=== PATIENT | female | born 1995 | race Caucasian/White ===

== ENCOUNTER 2022-05-21 08:00 | Outpatient (CLI) | payer MEDICAID | END 2022-05-21 23:59 | disposition home or self-care (01) | LOC: LAB.R 08:00 | PROVIDERS: ATTEND Nurse Practitioner Obstetrics & Gynecology | DX: R03.0 Elevated blood-pressure reading, without diagnosis of hypertension (principal) | CPT/HCPCS: 81599; 84156 ==

== ENCOUNTER 2022-05-27 09:59 | Outpatient (CLI) | payer MEDICAID ==
[2022-05-27] MEDS ORDERED: LACTATED RINGERS 1,000 ML IV ONE (10:08)
[2022-05-27 10:34] VITALS: BP 136/69
[2022-05-27] MEDS ORDERED: FERRIC GLUCONATE 125 MG in SODIUM CHLORIDE 0.9% 100ML 100 ML IV ONE (11:00)
== END 2022-05-27 12:30 | disposition home or self-care (01) ==
LOC: WFO 09:59 → FBP 10:03 → WFO 12:30
PROVIDERS: ATTEND Nurse Practitioner Obstetrics & Gynecology
DX: O99.013 Anemia complicating pregnancy, third trimester (principal); Z3A.00 Weeks of gestation of pregnancy not specified
CPT/HCPCS: 96365; J2916

== ENCOUNTER 2022-06-24 16:06 | Outpatient (CLI) | payer MEDICAID ==
--- NOTE | 2022-06-24 18:28 | Ultrasound Report ---
PROCEDURE: OB F/U or Repeat INDICATIONS: UTERINE SIZE DATE DISCREPENCY OUTSIDE/PRIOR DATING DATA: Last menstrual period (LMP): 10/25/2021 LMP-based estimated date of delivery (TON): 08/01/2022. First dating scan (date and location): 06/24/2022. Estimated date of delivery (TON) from first dating scan: 07/08/2022. TECHNIQUE: Real-time scanning was performed of the fetus, with image documentation and biometric measurements. COMPARISON: None. FINDINGS: General: A single living intrauterine gestation is present. Presentation: Vertex Placenta: Placental position is posterior, without previa. Amniotic fluid index: 23 cm, upper limits of normal for gestational age. heart rate: 164 beats per minute. Maternal cervical canal: 4.3 cm long; normal length is 2.5 cm or more. biometrics: Biparietal diameter: 9.3 cm 36 weeks 6 days Head circumference: 35.1 cm 40 weeks 5 days Abdominal circumference: 33.9 cm 37 weeks 5 days Femur length: 5.9 cm 35 weeks 2 days Estimated gestational age from LMP: 34 weeks 4 days Composite gestational age from present scan: 38 weeks 0 days Estimated weight and percentile: 3233 g 99th percentile Measurement variability in biometric dating: +/- 10 days from 12-20 weeks gestation, +/- 2 weeks from 20-30 weeks gestation, +/- 3 weeks at 30 weeks gestation or more. Other: Not applicable. IMPRESSION: Single live intrauterine with ultrasound gestational age today of 38 weeks 4 days. This is compared to 34 weeks 4 days based on clinical dates. Please correlate with clinical data given wide r mahamed of dates. In addition, weight is at the 99th percentile consistent with macrosomia. Reviewed by: Monique Stallings MD on 06/24/2022 6:26 PM PDT Approved by: Monique Stallings MD on 06/24/2022 6:26 PM PDT Station ID: [id number]
== END 2022-06-24 16:07 | disposition home or self-care (01) ==
LOC: DI 16:06
PROVIDERS: ATTEND Nurse Practitioner Obstetrics & Gynecology
DX: O26.843 Uterine size-date discrepancy, third trimester (principal); O99.213 Obesity complicating pregnancy, third trimester; Z3A.38 38 weeks gestation of pregnancy

== ENCOUNTER 2022-06-28 20:44 | Outpatient (CLI) | payer MEDICAID ==
[2022-06-28 21:16] LABS: BASOPHILS % (AUTO) 0.3 %; EOSINOPHILS # (AUTO) 0.1 10^3/uL (0.0-0.7); HCT - HEMATOCRIT 32.4 % (37.0-47.0); HGB - HEMOGLOBIN 10.2 g/dL (12.0-16.0); LYMPHOCYTES % (AUTO) 23.2 %; MEAN CORPUSCULAR HEMOGLOBIN 24.9 pg (27.0-31.0); MEAN CORPUSCULAR HGB CONC 31.5 g/dL (32.0-36.0); MEAN CORPUSCULAR VOLUME 79.2 fL (81.0-99.0); MEAN PLATELET VOLUME 10.9 fL (7.9-10.8); MONOCYTES # (AUTO) 0.9 10^3/uL (0.0-1.0); MONOCYTES % (AUTO) 7.2 %; NEUTROPHILS # (AUTO) 8.6 10^3/uL (1.5-6.6); NEUTROPHILS % (AUTO) 67.7 %; PLT - PLATELET COUNT 303 10^3/uL (130-450); RED BLOOD COUNT 4.09 10^6/uL (4.20-5.40); RED CELL DISTRIBUTION WIDTH 13.9 % (12.0-15.0); WHITE BLOOD COUNT 12.8 x10^3/uL (4.8-10.8)
[2022-06-28 21:28] LABS: CREATININE,URINE 56.4 mg/dL; PROTEIN/CREATININE RATIO,URINE 0.1 (<=0.2)
[2022-06-28 21:29] LABS: ALBUMIN 2.8 g/dL (3.2-5.5); ALBUMIN/GLOBULIN RATIO 0.6 (1.0-2.2); BILIRUBIN,TOTAL 0.4 mg/dL (0.2-1.0); CALCIUM 8.9 mg/dL (8.5-10.3); CREATININE 0.5 mg/dL (0.4-1.0); POTASSIUM 3.8 mmol/L (3.5-5.0); TOTAL PROTEIN 7.2 g/dL (6.7-8.2)
[2022-06-28 22:36] VITALS: BP 116/81
--- NOTE | 2022-06-29 09:42 | PROVIDER PROGRESS NOTE ---
- HPI Chief Complaint: Hypertension/PIH Current : Current EDU 08/01/22 Gestation 35 Weeks and 1 Days 4 Para 3 Vital Signs Temperature 37.0 C 06/28/22 21:04 Heart Rate 92 06/28/22 21:04 Respiratory Rate 22 06/28/22 21:04 Blood Pressure 135/93 H 06/28/22 21:04 Temperature 37.0 C 06/28/22 21:40 Heart Rate 91 06/28/22 21:40 Respiratory Rate 20 06/28/22 21:40 Blood Pressure 116/81 H 06/28/22 21:40 O2 Saturation If not protocol: Oxygen Flow, liters/minute - Procedures OB Procedure Performed: NST Diagnosis/Indication for NST: Gestational Hypertension NST Procedure: NST Procedure Start Date 06/28/22 Start Time 20:54 Stop Time 21:14 Vibroacoustic Stimulation Used No Patient States Movement Yes - Plan Plan: HPI: Deirdre presents today with her to [facility] with concerns for elevated blood pressure. She was diagnosed with gestational hypertension a couple of weeks ago. She has been checking her blood pressures at home and they have remained in the mildly elevated range with the diastolic pressures ranging in the high 80s to low 90s. Her systolics have been 120s-130s. What concerned her was the development of visual disturbances in her left eye that she notes as a crecent shape that progressively worsened and then completely blurred the vision in her left eye. She states her blood pressure when it was occurring was 138/94. She denies headache. SHe states she has had some upper abdominal pain under her ribs bilaterally and denies any increased pain in her right upper quadrant. She denies edema. She reports her visiual disturbances lasted x 1.5 hours and have now completely resolved. She has not history of gestational hypertension or preeclampsia in her previous pregnancies. O: BP on arrival 130/93 with repeat 120s/80s Heart RRR w/o M/G/R, lungs CTAB, abdomen gravid, soft, nontender with no RUQ tenderness noted upon palpation. DTRs 1+, no clonus. Bilateral LE's no edema. NST reactive: FHR baseline 130s, moderate variability, + accels, no decels No contractions appreciated via tocometry Pr/Cr ratio - 0.1 PIH labs WNL A: 26yo @ 35.1wks gestation Gestational hypertension Obesity P: IOL scheduled for 37.0wks gestation Closely reviewed PIH warning s/sx with patient and when to present for urgent/emergent evaluation. Continue twice weekly NSTs with once weekly AFIs. Pt verbalized understanding and agrees to above plan. She denies further questions or concerns at this time. FINAL DIAGNOSIS: Gestational hypertension
== END 2022-06-28 21:56 | disposition home or self-care (01) ==
LOC: WFO 20:44 → OBS 20:47 → FBP 20:55 → WFO 21:56
PROVIDERS: ATTEND Nurse Practitioner Obstetrics & Gynecology
DX: O13.3 Gestational [pregnancy-induced] hypertension without significant proteinuria, third trimester (principal); O99.891 Other specified diseases and conditions complicating pregnancy; H53.9 Unspecified visual disturbance; O99.213 Obesity complicating pregnancy, third trimester; Z3A.35 35 weeks gestation of pregnancy
CPT/HCPCS: 36415; 59025; 80053; 82570; 84156; 85025; 99212; 99215

== ENCOUNTER 2022-07-11 12:59 | Outpatient (CLI) | payer MEDICAID ==
[2022-07-11 13:32] VITALS: BP 104/58
[2022-07-11 13:58] LABS: BASOPHILS # (AUTO) 0.1 10^3/uL (0.0-0.1); BASOPHILS % (AUTO) 0.4 %; EOSINOPHILS # (AUTO) 0.1 10^3/uL (0.0-0.7); EOSINOPHILS % (AUTO) 0.8 %; HCT - HEMATOCRIT 35.7 % (37.0-47.0); HGB - HEMOGLOBIN 11.1 g/dL (12.0-16.0); LYMPHOCYTES # (AUTO) 2.8 10^3/uL (1.5-3.5); LYMPHOCYTES % (AUTO) 22.5 %; MEAN CORPUSCULAR HEMOGLOBIN 24.8 pg (27.0-31.0); MEAN CORPUSCULAR HGB CONC 31.1 g/dL (32.0-36.0); MEAN CORPUSCULAR VOLUME 79.7 fL (81.0-99.0); MEAN PLATELET VOLUME 11.3 fL (7.9-10.8); MONOCYTES # (AUTO) 0.8 10^3/uL (0.0-1.0); MONOCYTES % (AUTO) 6.6 %; NEUTROPHILS # (AUTO) 8.7 10^3/uL (1.5-6.6); NEUTROPHILS % (AUTO) 69.2 %; PLT - PLATELET COUNT 302 10^3/uL (130-450); RED BLOOD COUNT 4.48 10^6/uL (4.20-5.40); WHITE BLOOD COUNT 12.6 x10^3/uL (4.8-10.8)
[2022-07-11 14:14] LABS: ALBUMIN/GLOBULIN RATIO 0.6 (1.0-2.2); BILIRUBIN,TOTAL 0.3 mg/dL (0.2-1.0); CALCIUM 9.3 mg/dL (8.5-10.3); CREATININE 0.6 mg/dL (0.4-1.0); POTASSIUM 3.8 mmol/L (3.5-5.0); TOTAL PROTEIN 7.9 g/dL (6.7-8.2)
[2022-07-11 14:50] LABS: TOTAL PROTEIN,URINE TIMED < 6 mg/dL
[2022-07-11 14:52] LABS: CREATININE,URINE 46.1 mg/dL
--- NOTE | 2022-07-11 16:23 | PROCEDURE REPORT ---
- HPI Diagnosis/Indication for NST: Gestational Hypertension Current EDU 08/01/22 Gestation 37 Weeks and 0 Days 4 Para 3 Vital Signs Temperature 37.0 C 07/11/22 13:12 Temperature 37.0 C 07/11/22 13:25 Heart Rate 88 07/11/22 13:25 Respiratory Rate 18 07/11/22 13:25 Blood Pressure 104/58 L 07/11/22 13:25 O2 Saturation If not protocol: Oxygen Flow, liters/minute - NST Procedure NST Procedure Start Date 07/11/22 Start Time 13:06 Stop Time 13:38 Vibroacoustic Stimulation Used No Patient States Movement Yes - Results and Plan Findings/Impression: NST reactive. FHR baseline 140s, moderate variability, + accels, no decels Contractions palpate mild intermittently with soft resting tone. PIH labs - negative FINAL DIAGNOSIS: Gestational hypertension, 37.0wks gestation
== END 2022-07-11 14:15 | disposition home or self-care (01) ==
LOC: WFO 12:59 → FBP 13:01 → WFO 14:15
PROVIDERS: ATTEND Obstetrics & Gynecology
DX: O13.3 Gestational [pregnancy-induced] hypertension without significant proteinuria, third trimester (principal); Z3A.37 37 weeks gestation of pregnancy
CPT/HCPCS: 36415; 59025; 80053; 82570; 84156; 85025; 99212

== ENCOUNTER 2022-07-11 16:25 | Inpatient (IN) | payer MEDICAID ==
[2022-07-11] MEDS ORDERED: lidocaine 1% 20 ML MDV ID PRN (16:29)
[2022-07-11] MEDS ORDERED: miSOPROStoL 200 MCG TABLET BC PRN (16:29)
[2022-07-11] MEDS ORDERED: CARBOPROST TROMETHAMINE 250 MCG/ML AMP IM PRN (16:29)
[2022-07-11] MEDS ORDERED: METHYLERGONOVINE 0.2 MG/ML VIAL IM PRN (16:29)
[2022-07-11] MEDS ORDERED: SODIUM CHLORIDE FLUSH 0.9% 10 ML SYRINGE IVP PRN (16:29)
[2022-07-11] MEDS ORDERED: TRANEXAMIC ACID IN NACL 1,000 MG/100 ML BAG IV PRN (16:29)
[2022-07-11] MEDS ORDERED: OXYTOCIN/SODIUM CHLORIDE 500 ML IV PRN (16:29)
[2022-07-11] MEDS ORDERED: OXYTOCIN 10 UNIT/ML VIAL IM PRN (16:29)
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
[2022-07-11] MEDS: LACTATED RINGERS 1,000 ML IV SCH (17:00)
[2022-07-11] MEDS: SODIUM CHLORIDE FLUSH 0.9% 10 ML SYRINGE IVP SCH (17:00)
[2022-07-12] MEDS: SODIUM CHLORIDE FLUSH 0.9% 10 ML SYRINGE IVP SCH ×2 (01:00→13:42)
[2022-07-12] MEDS: LACTATED RINGERS 1,000 ML IV SCH ×2 (03:00→20:34)
--- NOTE | 2022-07-12 06:34 | PROVIDER PROGRESS NOTE ---
Labor Progress Note - Uterine Monitoring Uterine Monitoring Mode: positive: External toco Contraction Frequency (min/apart): occasional Contraction Intensity: positive: Mild Uterine Resting Tone: positive: Soft - Monitoring Monitor Mode: positive: External ultrasound Heart Rate Baseline: 130 Heart Rate Variability: positive: Moderate (6-25 bmp) Accelerations: positive: Present, 15x15 Decelerations: positive: None Strip Review: positive: Category I - Vaginal Exam Dilation (in cm): 2-3 Effacement (%): 50 Station: -3 Cervical Position: Posterior - Labor Progress Note Labor Progress Note/Additional Text: S: Deirdre states she was able to get some sleep last night. She felt cramping in her back pretty consistently after initial placement of the cervical ripening balloon but after a couple of hours it decreased and she only felt the cramping with baby's movements. She denies CLARK, visual disturbances, RUQ or epigastric pain. She has experienced some increased mucousy discharged that has a small amount of blood in it. She denies leakage of fluid and reports +FM. O: FHR baseline 130s, moderate variability, + accels, no decels Contractions palpate mild occasionally with soft resting tone SVE 2-3/50/-3, posterior. Vertex with intact membranes. A: 26yo @ 37.1wks gestation Gestational hypertension - normotensive since arrival FHR Category I GBS negative P: Baptiste cervical ripening balloon removed and pt tolerated well. Initiate misprostol 50mcg BC x once followed by initiation of pitocin for induction of labor 4 hours after administration of misoprostol. Continuous monitoring Encouraged ambulation and position changes. Nitrous oxide PRN. Jacuzzi PRN. Epidural per maternal request. Anticipate .
[2022-07-12] MEDS: miSOPROStoL 100 MCG TABLET BC SCH ×2 (08:46→13:41)
[2022-07-12] MEDS ORDERED: OXYTOCIN/SODIUM CHLORIDE 500 ML IV SCH (20:10)
--- NOTE | 2022-07-12 20:14 | PROVIDER PROGRESS NOTE ---
Labor Progress Note - Uterine Monitoring Uterine Monitoring Mode: positive: External toco Contraction Frequency (min/apart): 2-3 Contraction Intensity: positive: Mild Uterine Resting Tone: positive: Soft - Monitoring Monitor Mode: positive: External ultrasound Heart Rate Baseline: 150 Heart Rate Variability: positive: Moderate (6-25 bmp) Accelerations: positive: Present, 15x15 Decelerations: positive: None Strip Review: positive: Category I - Vaginal Exam Dilation (in cm): 3 Effacement (%): 50 Station: -3 Cervical Position: Posterior - Labor Progress Note Labor Progress Note/Additional Text: S: Pt has been feeling more consistent cramping following 2 doses of 50mcg BC misoprostol. She is currently sitting up in the bed. Her Maycol is supportive at the bedside. She has had some mucousy discharge. She denies headache, visual disturbances, RUQ or epigastric pain. O: FHR baseline 150, moderate variability, + accels, no decels Contractions palpate mild every 2-3 minutes with soft resting tone SVE 3/50/-3, posterior. Vertex. Intact membranes BP normotensive A: 26yo @ 37.1wks gestation Gestational hypertension FHR Category I GBS negative P: Initiate pitocin for induction of labor with titration per protocol. Continuous monitoring. Encouraged ambulation and position changes. Jacuzzi PRN. Nitrous oxide PRN. Epidural per maternal request. Anticipate .
[2022-07-13] MEDS: LACTATED RINGERS 1,000 ML IV SCH ×3 (04:05→13:20)
--- NOTE | 2022-07-13 07:06 | PROVIDER PROGRESS NOTE ---
Labor Progress Note - Uterine Monitoring Uterine Monitoring Mode: positive: External toco Contraction Frequency (min/apart): 2-3 Contraction Intensity: positive: Moderate Uterine Resting Tone: positive: Soft - Monitoring Monitor Mode: positive: External ultrasound Heart Rate Baseline: 130 Heart Rate Variability: positive: Moderate (6-25 bmp) Accelerations: positive: Present, 15x15 Decelerations: positive: None Strip Review: positive: Category I - Vaginal Exam Dilation (in cm): 4 Effacement (%): 50 Station: -2 Cervical Position: Midposition - Labor Progress Note Labor Progress Note/Additional Text: S: Pt feeling more uncomfortable with contractions. She requests an epidural for pain management at this trime prior to initiation of rupture of membranes since historically this has made her labor progress rather quickly. Her is supportive at the bedside. O: FHR baseline 130, moderate variability, + accels, no decels Contractions palpate moderate every 2-3 minutes with soft resting tone. SVE 3-4/50/-2, midposition. Soft, vertex. Pitocin @ 12mU/mL A: 26yo @ 37.2wks gestation Gestational hypertension Obesity Early labor FHR Category I P: Continue induction of labor with pitocin with titration per protocol. Continuous monitoring. Anesthesia notified that patient would like an epidural for pain management. AROM once comfortable with epidural. Anticipate .
[2022-07-13] MEDS ORDERED: ROPIVACAINE 0.2% 200 MG/100 ML BAG EP ONE (07:15)
[2022-07-13] MEDS ORDERED: NALBUPHINE 10 MG/ML AMP IVP PRN (08:13)
[2022-07-13] MEDS ORDERED: ROPIVACAINE 0.2% 200 MG/100 ML BAG EP PRN (08:13)
[2022-07-13] MEDS ORDERED: diphenhydrAMINE INJ 50 MG/ML VIAL IVP PRN (08:13)
[2022-07-13] MEDS ORDERED: ONDANSETRON 4 MG/2 ML VIAL IVP PRN (08:13)
--- NOTE | 2022-07-13 08:13 | ANESTHESIA ---
Pre-Anesthesia VS, & Labs - Diagnosis active labor - Procedure labor induction Vital Signs: Temp Pulse Resp BP Pulse Ox O2 Flow Rate 36.0 C L 92 20 120/79 98 07/12/22 06:45 07/12/22 06:45 07/12/22 06:45 07/12/22 06:45 07/11/22 19:32 Height: 5 ft 8 in Weight (kg): 136.985 kg Body Mass Index: 45.9 BMI Classification: Morbidly Obese - NPO Other - Is Patient ?: Yes - Lab Results Current Lab Results: Laboratory Tests 07/11/22 19:50: Blood Type Recheck O POSITIVE 07/11/22 18:30: Blood Type O POSITIVE, Antibody Screen NEGATIVE Home Medications and Allergies Active Medications Carboprost Tromethamine (Carboprost Tromethamine 250 Mcg/Ml Amp) 250 mcg IM Q15M PRN PRN Reason: Step 4: Hemorrhage protocol Stop: 07/16/22 16:30 Oxytocin/Sodium Chloride (Pitocin/Sodium Chloride) 500 mls @ 999 mls/hr IV PRN PRN; Protocol PRN Reason: POST- HEMORR PREVENTION Stop: 07/16/22 16:30 Tranexamic Acid (Tranexamic 1,000 Mg/100ml-Nacl) 1,000 mg in 100 mls @ 600 mls/hr IV .ONCE PRN PRN Reason: EBL >1200mL and within 3hr Stop: 07/16/22 16:30 Lactated Ringer's (Lr) 1,000 mls @ 100 mls/hr IV .Q10H OSMANY Last Admin: 07/13/22 04:05 Dose: 100 mls/hr Oxytocin/Sodium Chloride (Pitocin/Sodium Chloride) 500 mls @ 2 mls/hr IV TITR OSMANY; Protocol Last Titration: 07/13/22 06:21 Dose: 12 milliunit/min, 12 mls/hr Lidocaine HCl (Lidocaine 1% 20 Ml Mdv) 20 ml ID .ONCE PRN PRN Reason: PERINEAL REPAIR Stop: 07/16/22 16:30 Methylergonovine Maleate (Methylergonovine 0.2 Mg/Ml Vial) 0.2 mg IM .ONCE PRN PRN Reason: Step 2: Hemorrhage protocol Stop: 07/16/22 16:30 Misoprostol (Misoprostol 200 Mcg Tablet) 800 mcg BC .ONCE PRN PRN Reason: Step 3: Hemorrhage protocol Stop: 07/16/22 16:30 Misoprostol (Misoprostol 100 Mcg Tablet) 50 mcg BC Q4H [facility] Last Admin: 07/12/22 13:41 Dose: 50 mcg Oxytocin (Oxytocin 10 Unit/Ml Vial) 10 unit IM .ONCE PRN PRN Reason: Step one: If no IV access Stop: 07/16/22 16:30 Sodium Chloride (Sodium Chloride Flush 0.9% 10 Ml Syringe) 10 ml IVP 0100,0900,1700 [facility] Last Admin: 07/12/22 13:42 Dose: 10 ml Sodium Chloride (Sodium Chloride Flush 0.9% 10 Ml Syringe) 10 ml IVP PRN PRN PRN Reason: NEEDED PER PROVIDER ORDERS Allergies/Adverse Reactions: Allergies Allergy/AdvReac Type Severity Reaction Status Date / Time amoxicillin Allergy Hives Verified 05/27/22 10:35 Penicillins Allergy Hives Verified 05/27/22 10:35 Anes History & Medical History - Anesthetic History Anesthesia Complications: reports: No previous complications - Medical History Smoking Status: Never smoker - Obstetrical History : 4 Parity: 3 Events: reports: None Complications: reports: induced HTN Exam General: Alert, Oriented x3 Dental: WNL Mouth Opening: Greater than 4 Fingerbreadths Neck Mobility: Normal Mallampati classification: II Thyromental Distance: greater than 6 cm Respiratory: Lungs clear Plan Anesthesia Type: Epidural Consent for Procedure(s) Verified and Reviewed: Yes Code Status: Attempt Resuscitation ASA classification: 3-Severe systemic disease Is this case an emergency?: No
--- NOTE | 2022-07-13 11:44 | PROVIDER PROGRESS NOTE ---
Labor Progress Note - Uterine Monitoring Uterine Monitoring Mode: positive: External toco Contraction Frequency (min/apart): 2-4 Contraction Intensity: positive: Moderate Uterine Resting Tone: positive: Soft - Monitoring Monitor Mode: positive: External ultrasound Heart Rate Baseline: 150 Heart Rate Variability: positive: Moderate (6-25 bmp) Accelerations: positive: Present, 15x15 Decelerations: positive: None Strip Review: positive: Category I - Vaginal Exam Dilation (in cm): 5 Effacement (%): 50 Station: -1 Cervical Position: Midposition - Labor Progress Note Labor Progress Note/Additional Text: S: Pt comfortable with epidural. She states it took a little while for her right side to get complete coverage but is feeling well now and has been able to sleep intermittently. Her and mom are supportive at the bedside. She continues to deny headache, visual disturbances, RUQ or epigastric pain. O: FHR baseline 150s, moderate variability, + accels, no decels Contractions palpate moderate every 2-4 minutes with soft resting tone. SVE 5/50/-1, midposition, vertex. AROM occurred and was noted to be a large amount of clear amniotic fluid. Pitocin @ 12mU/mL A: 26yo @ 37.2wks gestation by LMP c/w first trimester ultrasound Gestational hypertension Early labor Obesity FHR Category I P: Continue pitocin induction of labor with titration of pitocin per protocol. Encouraged position changes in bed on peanut ball. Maintain epidural for pain management. Continuous monitoring. Anticipate .
[2022-07-13] MEDS: SODIUM CHLORIDE FLUSH 0.9% 10 ML SYRINGE IVP SCH (13:55)
[2022-07-13] MEDS ORDERED: MAGNESIUM HYDROXIDE 2,400 MG/30 ML UDC PO PRN (17:03)
--- NOTE | 2022-07-13 17:05 | DELIVERY NOTE ---
Delivery Note - Labor Labor: positive: Augmented by ARM, Induced by oxytocin - Delivery Method Infant Delivery Method: positive: Spontaneous vaginal delivery - Cervical Ripening Method Cervical Ripening Method: positive: Balloon device, Misoprostil - Presentation Presentation: positive: Vertex, ANNE MARIE - left occiput anterior - Nuchal Cord Nuchal Cord: positive: Present, Reduced - Amniotic Fluid Description Amniotic Fluid Description: positive: Clear - Episiotomy Type Episiotomy Type: positive: None - Laceration Laceration: positive: None - Delivery Outcome Delivery Outcome: positive: Livebirth - : positive: Placed in direct skin contact with mother, Stimulated, Warmed, Dewey used Ermine sex: positive: Male - Cord Cord: positive: 3 vessels - Placenta Placenta: positive: Intact, Spontaneous - Estimated Blood Loss Estimated Blood Loss (in cc): 200 - Post Delivery Events Post Delivery Events: positive: No post delivery events - Delivery Comments (Free Text/Narrative) Delivery Comments (Free Text/Narrative): Labor: This 26yo @ 37.2wks gestation by LMP c/w 11.2wk ultrasound who presented to [facility] for medical induction of labor secondary to gestational hypertension 07/11/2022. Upon arrival she was noted to be 1/50/-3, posterior and vertex with intact membranes. She had a burroughs cervical ripening balloon in place x 12 hours which was followed by 2 doses of 50mcg BC misoprostol for pre- induction cervical ripening. Pitocin was then initiated for induction of labor for a maximum infusion rate of 14mU/mL. Epidural was received per maternal request. AROM occurred for augmentation of labor and was noted to be a large amount of clear fluid. FHR baseline demonstrated Category I pattern throughout labor with occasional periods of Category II secondary to occasional variable decelerations but overall remained reassuring throughout. Pt progressed to c/c/+2 at 1547 with onset of active pushing at 1548. : She progressed to spontaneously deliver a viable male on 07/13/2022 @ 1557. Nuchal cord x 1 was reduced. The was placed on maternal abdomen, stimulated, dried, and placed skin to skin. 's were 8/9 at 1 and 5 minutes respectively. Pitocin administered via IV for hemostasis. The umbillical cord was allowed to stop pulsating at which time it was doubly clamped by CNM and cut by FOB. 3VC. Cord blood was obtained. Fundal massage and gentle traction applied for active management of the third stage. Placenta delivered spontaneously and intact at 1606. EBL 200mL. Fourth stage: Uterine fundus firm and there is no excessive bleeding. The perineum, vagina, and cervix were inspected and found to be intact. initiated. Family bonding well. Both mother and baby were left in stable condition.
[2022-07-13] MEDS ORDERED: HYDROCORTISONE 1% CREAM 28 GM TUBE PR PRN (17:30)
[2022-07-13] MEDS ORDERED: WITCH HAZEL/GLYCERIN 1 PAD TOP PRN (17:30)
[2022-07-13] MEDS: IBUPROFEN 800 MG TABLET PO SCH (17:54)
[2022-07-13] MEDS: ACETAMINOPHEN 500 MG TABLET PO SCH (17:54)
[2022-07-13] MEDS: DOCUSATE SODIUM 100 MG CAPSULE PO SCH (21:54)
[2022-07-14] MEDS: IBUPROFEN 800 MG TABLET PO SCH ×3 (00:06→12:32)
[2022-07-14] MEDS: ACETAMINOPHEN 500 MG TABLET PO SCH ×2 (01:19→09:14)
[2022-07-14] MEDS: DOCUSATE SODIUM 100 MG CAPSULE PO SCH (09:14)
--- NOTE | 2022-07-14 11:56 | Discharge Plan ---
Discharge Plan Problem Reviewed?: Yes Disposition: Home, Self Care Condition: Good Diet: Regular Activity Restrictions: No Restrictions Shower Restrictions: No Driving Restrictions: No Weight Bearing: Full Weight Instruction Topics: Vaginal After No Smoking: If you smoke, Please STOP! Call for help. Follow-up with: Isabel Brand CNM, ARNP [Provider Admit Priv/Credential] -
--- NOTE | 2022-07-14 11:57 | DISCHARGE SUMMARY ---
Discharge Summary Condition at Discharge: Good Discharge Disposition: 01 Home, Self Care - HOSPITAL COURSE Hospital Course: Date of Admission: 07/11/2022 Date of Discharge: 07/14/2022 Diagnosis on Admission: 1. 26yo @ 37.0wks gestation by LMP c/w 11.2wk U/S 2. Gestational hypertension, third trimester 3. Obesity complicating 4. FHR Category I 5. GBS negative Diagnosis on Discharge: 1. 26yo PPD#1 s/p TSVD viable male 2. 3. Normal recovery Brief history: She is a patient of [facility] who presented on 07/11/2022 for medical induction of labor secondary to gestational hypertension. She received a burroughs cervical ripening balloon and 2 doses of 50mcg BC misoprostol for pre- induction cervical ripening. Pitocin was initiation of induction of labor with AROM occurring for augmentation of labor. Epidural was placed per maternal request. She progressed to spontaneously deliver a viable male on 07/13/2022 over intact perineum at 1557. Apgars were 8/9 at 1 and 5 minutes respectively. She has been doing well in her course. She is ambulating and tolerating a regular diet. She is urinating without difficulty and her lochia is normal. She is bonding well with her baby and she is without difficulty. She will be discharged home today on day #1 with instructions to continue taking her vitamin while and to continue taking ibuprofen and tylenol over the counter as needed for pain management. She intends to follow up with myself at [facility] in 1 week for routine visit or sooner if needed. She has been given precautions to call if she has any worsening fevers, chills, abdominal pain, increased vaginal bleeding or foul smelling vaginal lochia. Physical exam: Normocephalic, atraumatic. Heart RRR w/o M/G/R, lungs CTAB, abdomen soft and nontender with fundus firm at U-1, perineum intact, light lochia rubra, bilateral LE's trace edema, mood is good. - ALLERGIES Allergies/Adverse Reactions: Allergies Allergy/AdvReac Type Severity Reaction Status Date / Time amoxicillin Allergy Hives Verified 05/27/22 10:35 Penicillins Allergy Hives Verified 05/27/22 10:35
[2022-07-14 12:27] VITALS: BP 132/60
--- NOTE | 2022-07-14 18:10 | Labor Flowsheet ---
Labor Flowsheet Datetime Report Generated by CPN: 07/14/2022 18:10 Datetime: 07/14/2022 12:24 VITAL SIGNS NBP Sys/Kimberley/Mean (mmHg): 132 : 60 : 77 Pulse: 68 Datetime: 07/13/2022 17:16 Temperature (C): 36.9 Temperature Route: Oral Datetime: 07/13/2022 16:06 Stage 2 Comments: Placenta delivered Datetime: 07/13/2022 15:59 Stage of : Recovery Medication Comments: pitocin bolus Datetime: 07/13/2022 15:46 LaborFlag: Antepartum Datetime: 07/13/2022 15:16 VAGINAL EXAM Dilatation (cm): 9.5 Effacement (%): 100 Exam by: M. Keo, Rotundo, RN Vaginal Exam Comments: Provider notified Datetime: 07/13/2022 14:49 Patient Position/Activity: Left Tilt Patient Care Comments: Peanut ball Datetime: 07/13/2022 14:36 MEDICATIONS Pitocin (milliunits): Increased to @ 16 Datetime: 07/13/2022 14:20 Station: -1 Datetime: 07/13/2022 13:55 Antiemetics/Antacids: Zofran (mg) @ 4 Datetime: 07/13/2022 13:30 Pitocin Checklist: At Least 1 Acceleration of 15 bpm x 15 Seconds in 30 Minutes or Adequate Variabi lity; No More than 1 Late Deceleration Occurred in Past 30 Minutes; No More than 2 Variable Decelerat ions > 60 Seconds in Duration and decreasing >60 bpm in 30 minutes; No More than 5 Uterine Contractio ns in 10 Minutes for any 20 Minute Interval; Uterus Palpates Soft between Contractions Datetime: 07/13/2022 13:28 Respirations: 16 SpO2 (%): 100 Datetime: 07/13/2022 12:30 Contraction Comments: palpated; adjusting toco Datetime: 07/13/2022 11:27 Membrane Status: Ruptured Membranes Rupture Method: Artificial Amniotic Fluid Color: Clear Amniotic Fluid Amount: Large Amniotic Fluid Odor: Normal Datetime: 07/13/2022 11:23 COMMUNICATION Communication: Provider at Bedside Communication Comments: A. Cathie bedside to rupture membranes Datetime: 07/13/2022 09:15 I/O Interventions: Baptiste Cath Inserted Datetime: 07/13/2022 08:15 UTERINE ACTIVITY Monitor Mode: External Monitor Interventions for UA: [place] Adjusted Frequency (min): 2-3 Quality: Mild Duration (sec): 40-60 Pattern: Normal: <= 5 Contractions in 10 Minutes Resting Tone (Palpate): Relaxed ASSESSMENT A Monitor Mode: Telemetry FHR Baseline Rate : 145 Variability: Moderate 6-25 bpm Accelerations: None Decelerations: Variable Category: Category II Comments: Charge nurse and provider aware of deccelerations Datetime: 07/13/2022 07:56 Epidural Procedure: Completed Datetime: 07/13/2022 07:43 Anesthesia Comments: 3cc Datetime: 07/13/2022 07:07 PATIENT CARE IV/Blood Work: IV Bolus Started Datetime: 07/13/2022 06:53 Vaginal Bleeding: Normal Show Cervix, Consistency: Soft Provider Reviewed Strip: No Datetime: 07/13/2022 04:03 PAIN Pain Scale: 4 Pain Presence: Intermittent Pain Type: Cramping; Contraction Pain Location: Abdomen Pain Coping: Talking Through Contractions Datetime: 07/13/2022 04:00 FHR Baseline Changes: No Baseline Change Datetime: 07/13/2022 03:13 Monitor Interventions for FHR: Ultrasound Adjusted Datetime: 07/13/2022 02:30 STAGE 2 Station Vacuum/Forceps Applied: 135 Datetime: 07/13/2022 00:23 MATERNAL ASSESSMENT Level of Consciousness: Alert DTR's/Clonus: DTRs 2+ Headache: Denies Breath Sounds, Left: Clear and Equal Breath Sounds, Right: Clear and Equal Nausea/Vomiting: Denies RUQ Epigastric Pain: Denies Datetime: 07/13/2022 00:05 Bedside Blood Glucose: 4 Vital Sign Comments: Datetime: 07/12/2022 22:18 Provider Notified (Name): Isabel Cathie CNM Datetime: 07/12/2022 19:58 Cervix, Position: Posterior Datetime: 07/12/2022 13:45 Cervical Ripening Agents: Baptiste Balloon; Cytotec @ Datetime: 07/12/2022 13:37 Oxygen Method: Room Air Datetime: 07/12/2022 09:43 ANESTHESIA Anesthesia Plans: Epidural Datetime: 07/12/2022 07:16 Strip Reviewed by: P.Jiang,RN Datetime: 07/12/2022 06:58 TEACHING Instructional Method: Verbal Plan of Care: Plan of Care Discussed; Induction Labor/Induction: Cervical Ripening Medications: Cervical Ripening Datetime: 07/12/2022 06:28 Cervical Ripening Agents Other: Baptiste balloon removed by Pamela Brand CNM Datetime: 07/11/2022 19:49 Unit Routine: [place] to Room; Call Kendall; Bed; Visiting Policy; Monitoring; Bathroom Privilege s; Medications Datetime: 07/11/2022 19:28 Pain Assessment Comments: Datetime: 06/28/2022 22:54 Membranes Ruptured Date/Time: 07/13/2022 11:28
== END 2022-07-14 17:30 | disposition home or self-care (01) | DRG 807 ==
LOC: LAB 16:25 → FBP 16:27 → LAB 16:28 → FBP 16:29
PROVIDERS: ADMIT Nurse Practitioner Obstetrics & Gynecology; ATTEND Nurse Practitioner Obstetrics & Gynecology
PROC: 0U7C7ZZ Dilation of Cervix, Via Natural or Artificial Opening (ICD-10-PCS; 2022-07-11)
PROC: 3E0DXGC Introduction of Other Therapeutic Substance into Mouth and Pharynx, External Approach (ICD-10-PCS; principal; 2022-07-12)
PROC: 3E033VJ Introduction of Other Hormone into Peripheral Vein, Percutaneous Approach (ICD-10-PCS; 2022-07-12)
PROC: 10E0XZZ Delivery of Products of Conception, External Approach (ICD-10-PCS; 2022-07-13)
PROC: 10907ZC Drainage of Amniotic Fluid, Therapeutic from Products of Conception, Via Natural or Artificial Opening (ICD-10-PCS; 2022-07-13)
DX: O13.4 Gestational [pregnancy-induced] hypertension without significant proteinuria, complicating childbirth (principal); Z37.0 Single live birth; O99.214 Obesity complicating childbirth; E66.01 Morbid (severe) obesity due to excess calories; Z3A.37 37 weeks gestation of pregnancy; O69.81X0 Labor and delivery complicated by cord around neck, without compression, not applicable or unspecified
CPT/HCPCS: 36415; 59025; 80053; 82570; 84156; 85025; 86850; 86900; 86901; 99212; A9270; J7120